=== PATIENT | female | born 1995 | race Caucasian/White ===

== ENCOUNTER 2021-10-25 11:52 | Inpatient (IN) ==
[2021-10-25] MEDS ORDERED: 0.9 % Sodium Chloride 1,000 ML IVC ONE (12:27)
[2021-10-25] MEDS ORDERED: Ondansetron 4 MG/2 ML VIAL IVP ONE ×2 (12:27→17:25)
[2021-10-25] MEDS ORDERED: *HR* HYDROmorphone (PF) 1 MG/ML SYRINGE IVP ONE (12:27)
[2021-10-25 14:28] LABS: Basophils % 0.1 %; Eosinophils % 0.6 %; Hematocrit 40.4 % (35.3-44.9); Hemoglobin 13.5 g/dL (11.5-15.4); Immature Granulocytes % 0.3 % (0-4); Lymphocytes # 1.6 K/mcL (0.6-4.6); Lymphocytes % 21.6 %; Mean Corpuscular HGB Conc 33.4 g/dL (31.6-35.5); Mean Corpuscular Hemoglobin 29.2 pg (28.0-33.3); Mean Corpuscular Volume 87.4 fL (83.0-100.0); Mean Platelet Volume 10.9 fL (9.4-12.4); Monocytes # 0.5 K/mcL (0.0-1.3); Monocytes % 6.9 %; Neutrophils # 5.1 K/mcL (1.6-8.9); Platelet Count 207 K/mcL (140-400); Red Blood Count 4.62 M/mcL (3.82-4.97); Red Cell Distribution Width 13.2 % (11.5-14.5); Segmented Neutrophils % 70.5 %; White Blood Count 7.2 K/mcL (4.3-11.1)
[2021-10-25 14:42] LABS: Alanine Aminotransferase 120 Units/L (7-52); Albumin 4.1 g/dL (3.5-5.7); Albumin/Globulin Ratio 1.3 (1.1-2.2); Alkaline Phosphatase 118 Units/L (34-104); Aspartate Amino Transferase 53 Units/L (13-39); BUN/Creatinine Ratio 13 (6-26); Bilirubin,Direct 3.1 mg/dL (0.0-0.2); Bilirubin,Indirect 2.1 mg/dL (0.0-1.0); Bilirubin,Total 5.2 mg/dL (0.3-1.0); Blood Urea Nitrogen 9 mg/dL (6-20); Calcium 8.7 mg/dL (8.6-10.3); Carbon Dioxide 17 mEq/L (23-29); Chloride 102 mEq/L (98-107); Globulin 3.1 g/dL (2.4-3.5); Glucose 65 mg/dL (70-105); Lipase 18 Units/L (11-82); Osmolality,Calculated 275 (280-300); Potassium 4.1 mEq/L (3.5-5.1); Sodium 134 mEq/L (136-145); Total Protein 7.2 g/dL (6.4-8.9); eGFR For African Americans > 60 (> 60); eGFR For Non-African Americans > 60 (> 60)
[2021-10-25] MEDS ORDERED: Isovue-370 500 ML BOTTLE IVP ONE (15:04)
[2021-10-25] MEDS ORDERED: *HR* Dextrose 50 % in Water (Syg) 50 ML SYRINGE IVP ONE (17:25)
[2021-10-25] MEDS ORDERED: Famotidine 20 MG/2 ML VIAL IVP ONE (17:25)
[2021-10-25] MEDS ORDERED: Naloxone 0.4 MG/ML INJ IVP PRN (19:52)
[2021-10-25] MEDS: 0.9 % Sodium Chloride 1,000 ML IVC SCH (20:55)
[2021-10-25] MEDS ORDERED: Dextrose Gel 15 GM/37.5 ML TUBE PO PRN ×2 (22:16)
[2021-10-25] MEDS ORDERED: D5% in Water 1,000 ML IVC PRN (22:16)
[2021-10-25] MEDS: *HR* Dextrose 50 % in Water (Syg) 50 ML SYRINGE IVP PRN (22:25)
[2021-10-25] MEDS ORDERED: Melatonin 3 MG TABLET PO ONE (22:37)
[2021-10-25 23:36] LABS: Bacteria,Urine Few per hpf (None-Few); Bilirubin,Urine Negative (Negative); Blood,Urine Trace (Negative); Calcium Oxalate Crystals,Urine Present per hpf; Clarity,Urine Clear (Clear); Color,Urine Yellow (Yellow); Glucose,Urine (UA) Normal (Normal); Ketones,Urine 150 mg/dL (Negative); Leukocyte Esterase,Urine Small (Negative); Mucus,Urine Few per lpf (None-Few); Nitrite,Urine Negative (Negative); PH,Urine 5.5 pH Units (5.0-8.0); Protein,Urine Trace mg/dL (Neg-Trace); Specific Gravity,Urine > 1.030 (1.010-1.025); Squamous Epithelial Cell,Urine Moderate per hpf (None-Few)
[2021-10-26] MEDS: *HR* Dextrose 50 % in Water (Syg) 50 ML SYRINGE IVP PRN (01:36)
[2021-10-26 05:15] LABS: Basophils % 0.3 %; Eosinophils # 0.1 K/mcL (0.0-0.6); Eosinophils % 1.2 %; Hematocrit 38.6 % (35.3-44.9); Hemoglobin 12.6 g/dL (11.5-15.4); Immature Granulocytes % 0.3 % (0-4); Lymphocytes # 2.1 K/mcL (0.6-4.6); Lymphocytes % 26.6 %; Mean Corpuscular HGB Conc 32.6 g/dL (31.6-35.5); Mean Corpuscular Hemoglobin 28.6 pg (28.0-33.3); Mean Corpuscular Volume 87.7 fL (83.0-100.0); Mean Platelet Volume 10.8 fL (9.4-12.4); Monocytes # 0.6 K/mcL (0.0-1.3); Monocytes % 8.1 %; Neutrophils # 4.9 K/mcL (1.6-8.9); Platelet Count 200 K/mcL (140-400); Red Cell Distribution Width 13.4 % (11.5-14.5); Segmented Neutrophils % 63.5 %; White Blood Count 7.8 K/mcL (4.3-11.1)
[2021-10-26 05:21] LABS: INR 1.2; Prothrombin Time 13.2 Seconds (9.4-12.1)
[2021-10-26] MEDS ORDERED: D5% in 0.9% NACL 1,000 ML IVC SCH (05:30)
[2021-10-26 05:36] LABS: Alanine Aminotransferase 113 Units/L (7-52); Albumin 3.9 g/dL (3.5-5.7); Albumin/Globulin Ratio 1.3 (1.1-2.2); Alkaline Phosphatase 110 Units/L (34-104); Aspartate Amino Transferase 61 Units/L (13-39); BUN/Creatinine Ratio 7 (6-26); Bilirubin,Direct 1.9 mg/dL (0.0-0.2); Bilirubin,Indirect 2.1 mg/dL (0.0-1.0); Blood Urea Nitrogen 5 mg/dL (6-20); Calcium 8.8 mg/dL (8.6-10.3); Carbon Dioxide 21 mEq/L (23-29); Chloride 104 mEq/L (98-107); Glucose 75 mg/dL (70-105); Magnesium 1.7 mg/dL (1.6-2.6); Osmolality,Calculated 276 (280-300); Sodium 135 mEq/L (136-145); Total Protein 6.9 g/dL (6.4-8.9); eGFR For African Americans > 60 (> 60); eGFR For Non-African Americans > 60 (> 60)
[2021-10-26 05:48] LABS: Thyroid Stimulating Hormone 0.988 mcIU/mL (0.340-5.600)
[2021-10-26 05:58] LABS: Hepatitis B Surface Antigen Nonreactive (Nonreactive)
[2021-10-26 06:28] LABS: Hepatitis A Antibody IgM Nonreactive (Nonreactive); Hepatitis B Core IgM Nonreactive (Nonreactive)
[2021-10-26 06:29] LABS: Hepatitis C Virus Antibody Nonreactive (Nonreactive)
[2021-10-26] MEDS ORDERED: *HR* Propofol 200 MG/20 ML VIAL IVP ONE (12:46)
[2021-10-26] MEDS ORDERED: *HR* FentaNYL (PF) 100 MCG/2 ML VIAL ONE ×2 (12:46→14:09)
[2021-10-26] MEDS ORDERED: Lidocaine -MPF 2% 5 ML VIAL ONE (12:46)
[2021-10-26] MEDS ORDERED: *HR* Midazolam HCl 2 MG/2 ML VIAL ONE (12:46)
[2021-10-26] MEDS ORDERED: *HR* Rocuronium Bromide 50 MG/5 ML VIAL ONE ×2 (12:46)
[2021-10-26] MEDS ORDERED: Indomethacin 50 MG SUPP.RECT RC ONE (13:56)
[2021-10-26] MEDS ORDERED: Promethazine 6.25 MG in Water for inj. (sterile) 20 ML IVPB PRN (15:23)
[2021-10-26] MEDS: 0.9 % Sodium Chloride 1,000 ML IVC SCH (16:49)
[2021-10-26] MEDS: Ketorolac 30 MG/ML VIAL IM PRN (21:54)
[2021-10-26] MEDS: Ondansetron 4 MG/2 ML VIAL IVP PRN (21:56)
[2021-10-27 02:00] LABS: Basophils % 0.1 %; Hematocrit 39.8 % (35.3-44.9); Hemoglobin 13.1 g/dL (11.5-15.4); Immature Granulocytes % 0.4 % (0-4); Lymphocytes # 0.9 K/mcL (0.6-4.6); Lymphocytes % 8.4 %; Mean Corpuscular HGB Conc 32.9 g/dL (31.6-35.5); Mean Corpuscular Hemoglobin 28.5 pg (28.0-33.3); Mean Corpuscular Volume 86.7 fL (83.0-100.0); Monocytes # 0.9 K/mcL (0.0-1.3); Monocytes % 7.9 %; Platelet Count 207 K/mcL (140-400); Red Blood Count 4.59 M/mcL (3.82-4.97); Red Cell Distribution Width 13.5 % (11.5-14.5); Segmented Neutrophils % 83.2 %; White Blood Count 10.8 K/mcL (4.3-11.1)
[2021-10-27 02:22] LABS: Alanine Aminotransferase 116 Units/L (7-52); Albumin/Globulin Ratio 1.4 (1.1-2.2); Alkaline Phosphatase 106 Units/L (34-104); Aspartate Amino Transferase 65 Units/L (13-39); BUN/Creatinine Ratio 9 (6-26); Blood Urea Nitrogen 6 mg/dL (6-20); Calcium 9.3 mg/dL (8.6-10.3); Carbon Dioxide 23 mEq/L (23-29); Chloride 103 mEq/L (98-107); Globulin 2.9 g/dL (2.4-3.5); Glucose 107 mg/dL (70-105); Osmolality,Calculated 282 (280-300); Potassium 4.9 mEq/L (3.5-5.1); Sodium 137 mEq/L (136-145); Total Protein 6.9 g/dL (6.4-8.9); eGFR For African Americans > 60 (> 60); eGFR For Non-African Americans > 60 (> 60)
[2021-10-27] MEDS ORDERED: *HR* HYDROmorphone 2 MG TABLET PO ONE (03:15)
[2021-10-27] MEDS ORDERED: Prochlorperazine 10 MG/2 ML VIAL IVP PRN ×2 (03:33→14:01)
[2021-10-27] MEDS ORDERED: Isovue-300 50ML VIAL ONE (07:35)
[2021-10-27] MEDS: Ondansetron 4 MG/2 ML VIAL IVP PRN (07:56)
[2021-10-27] MEDS: Ketorolac 30 MG/ML VIAL IM PRN ×3 (07:56→23:18)
[2021-10-27] MEDS ORDERED: Promethazine 6.25 MG in Water for inj. (sterile) 20 ML IVPB PRN ×2 (09:09→14:01)
[2021-10-27] MEDS ORDERED: Ondansetron 4 MG/2 ML VIAL IVP PRN ×3 (09:09→14:01)
[2021-10-27] MEDS ORDERED: *HR* OxyCODONE Immed Rel 5 MG TABLET PO PRN ×2 (09:09→14:01)
[2021-10-27] MEDS ORDERED: *HR* FentaNYL (PF) 100 MCG/2 ML VIAL IVP PRN ×3 (09:09→14:01)
[2021-10-27] MEDS ORDERED: *HR* FentaNYL (PF) 100 MCG/2 ML VIAL ONE ×2 (10:09→12:09)
[2021-10-27] MEDS ORDERED: *HR* Propofol 200 MG/20 ML VIAL IVP ONE (10:09)
[2021-10-27] MEDS ORDERED: *HR* Midazolam HCl 5 MG/5 ML VIAL IVP ONE (10:09)
[2021-10-27] MEDS ORDERED: *HR* Rocuronium Bromide 50 MG/5 ML VIAL ONE (10:10)
[2021-10-27] MEDS ORDERED: Sugammadex Sodium 200 MG/2 ML VIAL IV ONE (10:10)
[2021-10-27] MEDS ORDERED: Ondansetron 4 MG/2 ML VIAL ONE (10:10)
[2021-10-27] MEDS ORDERED: Lidocaine -MPF 2% 5 ML VIAL ONE (10:10)
[2021-10-27] MEDS ORDERED: *HR* Succinylcholine 200 MG/10 ML VIAL IVP ONE (10:10)
[2021-10-27] MEDS ORDERED: Lidocaine HCL 4 ML Topical Solution (Laryng-O-Jet Kit Sterile Pak) TP ONE (10:10)
[2021-10-27] MEDS ORDERED: CeFAZolin Syr 2,000MG/20 ML 2,000 MG/20 ML SYRINGE IVPB ONE (10:35)
[2021-10-27] MEDS ORDERED: Scopolamine Patch 1.5 MG PATCH.TD72 ONE (11:37)
[2021-10-27] MEDS ORDERED: Scopolamine Patch 1.5 MG PATCH.TD72 TD ONE (11:42)
[2021-10-27] MEDS ORDERED: *HR* Labetalol 20 MG/4 ML SYRINGE IVP ONE (12:39)
[2021-10-27] MEDS ORDERED: Ringers Solution, Lactated 1,000 ML ONE (13:29)
[2021-10-27] MEDS ORDERED: D5% in Water 1,000 ML IVC PRN (14:01)
[2021-10-27] MEDS ORDERED: Dextrose Gel 15 GM/37.5 ML TUBE PO PRN ×2 (14:01)
[2021-10-27] MEDS ORDERED: Naloxone 0.4 MG/ML INJ IVP PRN (14:01)
[2021-10-27] MEDS ORDERED: *HR* Dextrose 50 % in Water (Syg) 50 ML SYRINGE IVP PRN (14:01)
[2021-10-27] MEDS: *HR* FentaNYL (PF) 100 MCG/2 ML VIAL IVP PRN (16:25)
[2021-10-27] MEDS: Melatonin 3 MG TABLET PO PRN (20:22)
[2021-10-27] MEDS: Pantoprazole 40 MG VIAL IVP SCH (22:47)
[2021-10-28] MEDS: *HR* FentaNYL (PF) 100 MCG/2 ML VIAL IVP PRN (03:05)
[2021-10-28 05:40] LABS: Hematocrit 40.6 % (35.3-44.9); Hemoglobin 13.3 g/dL (11.5-15.4); Mean Corpuscular HGB Conc 32.8 g/dL (31.6-35.5); Mean Corpuscular Hemoglobin 28.9 pg (28.0-33.3); Mean Corpuscular Volume 88.3 fL (83.0-100.0); Mean Platelet Volume 11.1 fL (9.4-12.4); Platelet Count 218 K/mcL (140-400); Red Cell Distribution Width 14.4 % (11.5-14.5); White Blood Count 15.5 K/mcL (4.3-11.1)
[2021-10-28 06:48] LABS: Alanine Aminotransferase 84 Units/L (7-52); Albumin 3.7 g/dL (3.5-5.7); Albumin/Globulin Ratio 1.4 (1.1-2.2); Alkaline Phosphatase 92 Units/L (34-104); Aspartate Amino Transferase 54 Units/L (13-39); BUN/Creatinine Ratio 12 (6-26); Bilirubin,Total 1.5 mg/dL (0.3-1.0); Blood Urea Nitrogen 8 mg/dL (6-20); Calcium 8.5 mg/dL (8.6-10.3); Carbon Dioxide 25 mEq/L (23-29); Chloride 104 mEq/L (98-107); Globulin 2.7 g/dL (2.4-3.5); Glucose 114 mg/dL (70-105); Magnesium 1.7 mg/dL (1.6-2.6); Osmolality,Calculated 285 (280-300); Potassium 3.9 mEq/L (3.5-5.1); Sodium 138 mEq/L (136-145); Total Protein 6.4 g/dL (6.4-8.9); eGFR For African Americans > 60 (> 60); eGFR For Non-African Americans > 60 (> 60)
[2021-10-28] MEDS: Pantoprazole 40 MG VIAL IVP SCH (08:37)
[2021-10-28] MEDS ORDERED: 0.9 % Sodium Chloride 1,000 ML IVC ONE (10:50)
[2021-10-28] MEDS ORDERED: Ondansetron 4 MG/2 ML VIAL IVP PRN (10:55)
[2021-10-28] MEDS: Metoclopramide 10 MG/2 ML VIAL IVP SCH ×2 (11:25→17:11)
[2021-10-28] MEDS: Ketorolac 30 MG/ML VIAL IM PRN (17:10)
[2021-10-29 02:19] LABS: Hematocrit 38.3 % (35.3-44.9); Hemoglobin 12.7 g/dL (11.5-15.4); Mean Corpuscular HGB Conc 33.2 g/dL (31.6-35.5); Mean Corpuscular Hemoglobin 29.2 pg (28.0-33.3); Mean Platelet Volume 10.7 fL (9.4-12.4); Platelet Count 205 K/mcL (140-400); Red Blood Count 4.35 M/mcL (3.82-4.97); Red Cell Distribution Width 14.3 % (11.5-14.5); White Blood Count 16.4 K/mcL (4.3-11.1)
[2021-10-29] MEDS: *HR* FentaNYL (PF) 100 MCG/2 ML VIAL IVP PRN (03:17)
[2021-10-29] MEDS: Melatonin 3 MG TABLET PO PRN (03:18)
[2021-10-29] MEDS: Metoclopramide 10 MG/2 ML VIAL IVP SCH ×3 (03:18→12:08)
[2021-10-29] MEDS ORDERED: Piperacillin/Tazobactam 3.375 GM in 0.9 % Sodium Chloride Mini Bag 100 ML IVPB SCH (08:00)
[2021-10-29] MEDS: Pantoprazole 40 MG VIAL IVP SCH (08:00)
[2021-10-29 11:53] VITALS: BP 128/80; PULSE 107; TEMP 97.9; O2SAT 93
[2021-10-29 17:26] LABS: Bilirubin,Direct 0.7 mg/dL (0.0-0.2)
== END 2021-10-29 14:30 | disposition home or self-care (01) | DRG 263 ==
LOC: EMEROOARM 11:52 → 3ANU 11:52 → SUATTDRO 18:16 → 3ANU 19:34 → SUATTDRO 10-27 14:16
PROVIDERS: ADMIT Family Medicine; ATTEND Internal Medicine

== ENCOUNTER 2021-10-31 19:00 | Inpatient (IN) ==
[2021-10-31] MEDS ORDERED: 0.9 % Sodium Chloride 1,000 ML IVC ONE ×2 (20:01→21:00)
[2021-10-31 20:29] LABS: Basophils % 0.2 %; Eosinophils # 0.1 K/mcL (0.0-0.6); Eosinophils % 0.2 %; Hematocrit 37.7 % (35.3-44.9); Hemoglobin 12.5 g/dL (11.5-15.4); Lymphocytes # 1.6 K/mcL (0.6-4.6); Lymphocytes % 7.7 %; Mean Corpuscular HGB Conc 33.2 g/dL (31.6-35.5); Mean Corpuscular Hemoglobin 28.5 pg (28.0-33.3); Mean Corpuscular Volume 86.1 fL (83.0-100.0); Mean Platelet Volume 10.8 fL (9.4-12.4); Monocytes # 2.3 K/mcL (0.0-1.3); Monocytes % 11.2 %; Neutrophils # 16.5 K/mcL (1.6-8.9); Platelet Count 311 K/mcL (140-400); Red Blood Count 4.38 M/mcL (3.82-4.97); Segmented Neutrophils % 79.7 %; White Blood Count 20.7 K/mcL (4.3-11.1)
[2021-10-31 20:31] LABS: Bacteria,Urine Few per hpf (None-Few); Bilirubin,Urine Negative (Negative); Blood,Urine Large (Negative); Clarity,Urine Turbid (Clear); Color,Urine Yellow (Yellow); Glucose,Urine (UA) Normal (Normal); Ketones,Urine 150 mg/dL (Negative); Leukocyte Esterase,Urine Small (Negative); Mucus,Urine Few per lpf (None-Few); Nitrite,Urine Negative (Negative); Protein,Urine 100 mg/dL (Neg-Trace); RBC,Urine 0-3 per hpf (0-3); Specific Gravity,Urine 1.021 (1.010-1.025); Squamous Epithelial Cell,Urine Moderate per hpf (None-Few); WBC,Urine 15-30 per hpf (0-3)
[2021-10-31 20:37] LABS: Alanine Aminotransferase 24 Units/L (7-52); Albumin 3.1 g/dL (3.5-5.7); Alkaline Phosphatase 72 Units/L (34-104); Aspartate Amino Transferase 14 Units/L (13-39); BUN/Creatinine Ratio 12 (6-26); Bilirubin,Direct 0.2 mg/dL (0.0-0.2); Bilirubin,Indirect 0.7 mg/dL (0.0-1.0); Bilirubin,Total 0.9 mg/dL (0.3-1.0); Blood Urea Nitrogen 6 mg/dL (6-20); Calcium 8.2 mg/dL (8.6-10.3); Carbon Dioxide 29 mEq/L (23-29); Chloride 92 mEq/L (98-107); Globulin 3.1 g/dL (2.4-3.5); Glucose 101 mg/dL (70-105); Osmolality,Calculated 270 (280-300); Potassium 2.8 mEq/L (3.5-5.1); Sodium 131 mEq/L (136-145); Total Protein 6.2 g/dL (6.4-8.9); eGFR For African Americans > 60 (> 60); eGFR For Non-African Americans > 60 (> 60)
[2021-10-31] MEDS ORDERED: Potassium Chloride Elixir 20 MEQ/15 ML UDC PO ONE (21:22)
[2021-10-31] MEDS ORDERED: Isovue-370 500 ML BOTTLE IVP ONE (21:24)
[2021-10-31 21:44] LABS: Adenovirus Not Detected (Not Detect); Bordetella Pertussis Not Detected (Not Detect); Chlamydophila pneumoniae Not Detected (Not Detect); Coronavirus 229E Not Detected (Not Detect); Coronavirus HKU1 Not Detected (Not Detect); Coronavirus NL63 Not Detected (Not Detect); Coronavirus OC43 Not Detected (Not Detect); Human Metapneumovirus Not Detected (Not Detect); Human Rhinovirus/Enterovirus Not Detected (Not Detect); Influenza A Subtype 2009 H1 Not Detected (Not Detect); Influenza B Not Detected (Not Detect); Mycoplasma pneumoniae Not Detected (Not Detect); Parainfluenza Virus 1 Not Detected (Not Detect); Parainfluenza Virus 2 Not Detected (Not Detect); Parainfluenza Virus 3 Not Detected (Not Detect); Parainfluenza Virus 4 Not Detected (Not Detect); Respiratory Syncytial Virus Not Detected (Not Detect); SARS-CoV-2 Not Detected (Not Detect)
[2021-10-31] MEDS ORDERED: Piperacillin/Tazobactam 3.375 GM in 0.9 % Sodium Chloride Mini Bag 100 ML IVPB ONE (22:35)
[2021-10-31] MEDS ORDERED: *HR* FentaNYL (PF) 100 MCG/2 ML VIAL IVP ONE (23:33)
[2021-11-01 00:36] LABS: Lipase 49 Units/L (11-82)
[2021-11-01] MEDS ORDERED: Naloxone 0.4 MG/ML INJ IVP PRN (00:44)
[2021-11-01] MEDS ORDERED: *HR* Heparin 5,000 UNIT/ML VIAL IVP PRN ×2 (00:45)
[2021-11-01] MEDS ORDERED: *HR* Heparin 5,000 UNIT/ML VIAL IVP ONE (00:45)
[2021-11-01] MEDS ORDERED: 0.9 % Sodium Chloride 1,000 ML IVC SCH ×2 (00:45→01:47)
[2021-11-01] MEDS ORDERED: Heparin 25,000UNIT/250ML 1/2NS 25,000 UNIT/250 ML IV.SOLN IVC SCH (00:45)
[2021-11-01 01:23] LABS: Heparin anti-factor XA UFH < 0.04 IU/mL (0.30-0.70); INR 1.5; Prothrombin Time 16.9 Seconds (9.4-12.1)
[2021-11-01 06:53] LABS: Basophils % 0.2 %; Eosinophils # 0.1 K/mcL (0.0-0.6); Eosinophils % 0.4 %; Hematocrit 34.8 % (35.3-44.9); Hemoglobin 11.5 g/dL (11.5-15.4); Immature Granulocytes % 0.9 % (0-4); Lymphocytes # 1.5 K/mcL (0.6-4.6); Lymphocytes % 8.1 %; Mean Corpuscular Hemoglobin 28.9 pg (28.0-33.3); Mean Corpuscular Volume 87.4 fL (83.0-100.0); Mean Platelet Volume 10.3 fL (9.4-12.4); Monocytes # 2.2 K/mcL (0.0-1.3); Monocytes % 11.7 %; Neutrophils # 14.5 K/mcL (1.6-8.9); Platelet Count 265 K/mcL (140-400); Red Blood Count 3.98 M/mcL (3.82-4.97); Red Cell Distribution Width 14.2 % (11.5-14.5); Segmented Neutrophils % 78.7 %; White Blood Count 18.5 K/mcL (4.3-11.1)
[2021-11-01 07:23] LABS: Troponin I < 0.03 ng/mL (< 0.04)
[2021-11-01 07:49] LABS: Phosphorous 2.2 mg/dL (2.7-4.5)
[2021-11-01] MEDS ORDERED: Acetaminophen IV 1,000 MG/100 ML BAG IVPB ONE (07:54)
[2021-11-01] MEDS: Piperacillin/Tazobactam 3.375 GM in 0.9 % Sodium Chloride Mini Bag 100 ML IVPB SCH ×2 (08:00→17:55)
[2021-11-01] MEDS: 0.9 % Sodium Chloride 1,000 ML IVC SCH ×2 (08:18→14:59)
[2021-11-01 08:23] LABS: BUN/Creatinine Ratio 13 (6-26); Blood Urea Nitrogen 6 mg/dL (6-20); Calcium 7.5 mg/dL (8.6-10.3); Carbon Dioxide 25 mEq/L (23-29); Chloride 102 mEq/L (98-107); Glucose 93 mg/dL (70-105); Osmolality,Calculated 277 (280-300); Potassium 3.6 mEq/L (3.5-5.1); Sodium 135 mEq/L (136-145); eGFR For African Americans > 60 (> 60); eGFR For Non-African Americans > 60 (> 60)
[2021-11-01] MEDS: Ondansetron 4 MG/2 ML VIAL IVP PRN (18:03)
[2021-11-02] MEDS: 0.9 % Sodium Chloride 1,000 ML IVC SCH ×3 (00:11→22:26)
[2021-11-02] MEDS: Melatonin 3 MG TABLET PO PRN ×2 (00:11→22:28)
[2021-11-02] MEDS: Piperacillin/Tazobactam 3.375 GM in 0.9 % Sodium Chloride Mini Bag 100 ML IVPB SCH ×3 (00:11→22:27)
[2021-11-02] MEDS: Acetaminophen 325 MG TABLET PO PRN (00:11)
[2021-11-02 02:54] LABS: Basophils # 0.1 K/mcL (0.0-0.2); Basophils % 0.3 %; Eosinophils # 0.1 K/mcL (0.0-0.6); Eosinophils % 0.6 %; Hematocrit 33.7 % (35.3-44.9); Hemoglobin 10.9 g/dL (11.5-15.4); Immature Granulocytes % 2.1 % (0-4); Lymphocytes # 1.6 K/mcL (0.6-4.6); Mean Corpuscular HGB Conc 32.3 g/dL (31.6-35.5); Mean Corpuscular Volume 89.6 fL (83.0-100.0); Mean Platelet Volume 9.8 fL (9.4-12.4); Monocytes # 2.3 K/mcL (0.0-1.3); Monocytes % 13.1 %; Neutrophils # 13.1 K/mcL (1.6-8.9); Platelet Count 257 K/mcL (140-400); Red Blood Count 3.76 M/mcL (3.82-4.97); Red Cell Distribution Width 14.4 % (11.5-14.5); Segmented Neutrophils % 74.9 %; White Blood Count 17.5 K/mcL (4.3-11.1)
[2021-11-02 03:13] LABS: Alanine Aminotransferase 16 Units/L (7-52); Albumin 2.6 g/dL (3.5-5.7); Alkaline Phosphatase 60 Units/L (34-104); Aspartate Amino Transferase 14 Units/L (13-39); BUN/Creatinine Ratio 12 (6-26); Bilirubin,Total 0.6 mg/dL (0.3-1.0); Blood Urea Nitrogen 6 mg/dL (6-20); Calcium 7.5 mg/dL (8.6-10.3); Carbon Dioxide 24 mEq/L (23-29); Chloride 101 mEq/L (98-107); Globulin 2.6 g/dL (2.4-3.5); Glucose 86 mg/dL (70-105); Magnesium 1.8 mg/dL (1.6-2.6); Osmolality,Calculated 275 (280-300); Phosphorous 3.3 mg/dL (2.7-4.5); Sodium 134 mEq/L (136-145); Total Protein 5.2 g/dL (6.4-8.9); eGFR For African Americans > 60 (> 60); eGFR For Non-African Americans > 60 (> 60)
[2021-11-02] MEDS: Ondansetron 4 MG/2 ML VIAL IVP PRN (11:57)
[2021-11-02] MEDS ORDERED: Vancomycin 1,750 MG in 0.9 % Sodium Chloride 250 ML IVPB SCH (16:00)
[2021-11-02] MEDS: Vancomycin 1,750 MG/517.5 ML IV.SOLN IVPB SCH (18:50)
[2021-11-03] MEDS: 0.9 % Sodium Chloride 1,000 ML IVC SCH ×3 (00:18→14:09)
[2021-11-03] MEDS: Ketorolac 30 MG/ML VIAL IVP PRN ×3 (00:32→21:34)
[2021-11-03] MEDS: Piperacillin/Tazobactam 3.375 GM in 0.9 % Sodium Chloride Mini Bag 100 ML IVPB SCH ×3 (05:34→21:11)
[2021-11-03] MEDS: Vancomycin 1,750 MG/517.5 ML IV.SOLN IVPB SCH ×2 (05:35→21:53)
[2021-11-03 05:43] LABS: Basophils # 0.1 K/mcL (0.0-0.2); Basophils % 0.4 %; Eosinophils # 0.2 K/mcL (0.0-0.6); Hematocrit 34.7 % (35.3-44.9); Hemoglobin 11.4 g/dL (11.5-15.4); Immature Granulocytes % 3.3 % (0-4); Lymphocytes # 1.6 K/mcL (0.6-4.6); Lymphocytes % 9.6 %; Mean Corpuscular HGB Conc 32.9 g/dL (31.6-35.5); Mean Corpuscular Hemoglobin 28.9 pg (28.0-33.3); Mean Corpuscular Volume 87.8 fL (83.0-100.0); Mean Platelet Volume 9.8 fL (9.4-12.4); Monocytes # 1.8 K/mcL (0.0-1.3); Monocytes % 10.9 %; Neutrophils # 12.2 K/mcL (1.6-8.9); Platelet Count 275 K/mcL (140-400); Red Blood Count 3.95 M/mcL (3.82-4.97); Red Cell Distribution Width 14.4 % (11.5-14.5); Segmented Neutrophils % 74.8 %; White Blood Count 16.3 K/mcL (4.3-11.1)
[2021-11-03 05:59] LABS: Alanine Aminotransferase 14 Units/L (7-52); Albumin 2.6 g/dL (3.5-5.7); Alkaline Phosphatase 68 Units/L (34-104); Aspartate Amino Transferase 15 Units/L (13-39); BUN/Creatinine Ratio 8 (6-26); Bilirubin,Total 0.6 mg/dL (0.3-1.0); Blood Urea Nitrogen 4 mg/dL (6-20); Calcium 7.9 mg/dL (8.6-10.3); Carbon Dioxide 24 mEq/L (23-29); Chloride 101 mEq/L (98-107); Globulin 2.7 g/dL (2.4-3.5); Glucose 82 mg/dL (70-105); Magnesium 1.8 mg/dL (1.6-2.6); Osmolality,Calculated 276 (280-300); Phosphorous 3.8 mg/dL (2.7-4.5); Potassium 3.2 mEq/L (3.5-5.1); Sodium 135 mEq/L (136-145); Total Protein 5.3 g/dL (6.4-8.9); eGFR For African Americans > 60 (> 60); eGFR For Non-African Americans > 60 (> 60)
[2021-11-03 19:26] LABS: Adenovirus F 40/41 PCR Not detected (Not detect); Astrovirus PCR Not detected (Not detect); C.difficile Toxin A/B Gene PCR Not detected (Not detect); Campylobacter by PCR Not detected (Not detect); Cryptosporidium by PCR Not detected (Not detect); Cyclospora cayetanensis PCR Not detected (Not detect); E. coli O157 by PCR Not detected (Not detect); Entamoeba histolytica PCR Not detected (Not detect); Enteroaggregative E.coli(EAEC) Not detected (Not detect); Enteropathogenic E.coli(EPEC) Not detected (Not detect); Enterotoxigenic E.coli (ETEC) Not detected (Not detect); Giardia lamblia PCR Not detected (Not detect); Norovirus GI/GII PCR Not detected (Not detect); Plesiomonas shigelloides PCR Not detected (Not detect); Rotavirus A PCR Not detected (Not detect); Salmonella PCR Not detected (Not detect); Sapovirus PCR Not detected (Not detect); Shig/EnteroinvasiveE coli EIEC Not detected (Not detect); Shigalike tox-prod E coli STEC Not detected (Not detect); Vibrio PCR Not detected (Not detect); Vibrio cholerae PCR Not detected (Not detect); Yersinia enterocolitica PCR Not detected (Not detect)
[2021-11-03] MEDS: Lactobacillus 1 EACH CAP.SPRINK PO SCH (21:13)
[2021-11-04] MEDS: 0.9 % Sodium Chloride 1,000 ML IVC SCH ×3 (03:23→17:04)
[2021-11-04] MEDS: Piperacillin/Tazobactam 3.375 GM in 0.9 % Sodium Chloride Mini Bag 100 ML IVPB SCH ×3 (03:28→21:34)
[2021-11-04] MEDS: Acetaminophen 325 MG TABLET PO PRN ×2 (04:31→17:42)
[2021-11-04] MEDS: Ondansetron 4 MG/2 ML VIAL IVP PRN (04:33)
[2021-11-04] MEDS: Ketorolac 30 MG/ML VIAL IVP PRN ×2 (05:58→17:43)
[2021-11-04 07:02] LABS: Basophils % 0.1 %; Eosinophils # 0.2 K/mcL (0.0-0.6); Eosinophils % 1.2 %; Hematocrit 29.8 % (35.3-44.9); Immature Granulocytes % 3.6 % (0-4); Lymphocytes # 1.3 K/mcL (0.6-4.6); Lymphocytes % 8.6 %; Mean Corpuscular HGB Conc 32.9 g/dL (31.6-35.5); Mean Corpuscular Hemoglobin 28.6 pg (28.0-33.3); Mean Corpuscular Volume 86.9 fL (83.0-100.0); Mean Platelet Volume 9.7 fL (9.4-12.4); Monocytes # 1.5 K/mcL (0.0-1.3); Neutrophils # 11.2 K/mcL (1.6-8.9); Platelet Count 265 K/mcL (140-400); Red Blood Count 3.43 M/mcL (3.82-4.97); Red Cell Distribution Width 14.5 % (11.5-14.5); Segmented Neutrophils % 76.5 %; White Blood Count 14.6 K/mcL (4.3-11.1)
[2021-11-04 07:06] LABS: Hemoglobin 9.8 g/dL (11.5-15.4)
[2021-11-04 07:50] LABS: Alanine Aminotransferase 19 Units/L (7-52); Albumin 2.5 g/dL (3.5-5.7); Albumin/Globulin Ratio 0.9 (1.1-2.2); Alkaline Phosphatase 66 Units/L (34-104); Aspartate Amino Transferase 27 Units/L (13-39); BUN/Creatinine Ratio 7 (6-26); Bilirubin,Total 0.5 mg/dL (0.3-1.0); Blood Urea Nitrogen 3 mg/dL (6-20); Calcium 7.6 mg/dL (8.6-10.3); Carbon Dioxide 24 mEq/L (23-29); Chloride 103 mEq/L (98-107); Globulin 2.7 g/dL (2.4-3.5); Glucose 99 mg/dL (70-105); Osmolality,Calculated 281 (280-300); Potassium 3.1 mEq/L (3.5-5.1); Sodium 137 mEq/L (136-145); Total Protein 5.2 g/dL (6.4-8.9); eGFR For African Americans > 60 (> 60); eGFR For Non-African Americans > 60 (> 60)
[2021-11-04] MEDS: Lactobacillus 1 EACH CAP.SPRINK PO SCH ×2 (08:33→21:34)
[2021-11-04] MEDS ORDERED: Vancomycin 1,750 MG/517.5 ML IV.SOLN IVPB SCH (10:00)
[2021-11-04] MEDS: Melatonin 3 MG TABLET PO PRN (21:34)
[2021-11-05] MEDS: Ketorolac 30 MG/ML VIAL IVP PRN ×2 (00:08→06:21)
[2021-11-05] MEDS: 0.9 % Sodium Chloride 1,000 ML IVC SCH ×2 (03:30→14:29)
[2021-11-05 05:19] LABS: Basophils % 0.1 %; Eosinophils # 0.2 K/mcL (0.0-0.6); Eosinophils % 1.4 %; Hematocrit 29.4 % (35.3-44.9); Hemoglobin 9.8 g/dL (11.5-15.4); Immature Granulocytes % 2.6 % (0-4); Lymphocytes # 1.9 K/mcL (0.6-4.6); Lymphocytes % 12.1 %; Mean Corpuscular HGB Conc 33.3 g/dL (31.6-35.5); Mean Corpuscular Hemoglobin 29.3 pg (28.0-33.3); Mean Corpuscular Volume 87.8 fL (83.0-100.0); Mean Platelet Volume 9.7 fL (9.4-12.4); Monocytes # 1.3 K/mcL (0.0-1.3); Monocytes % 8.2 %; Neutrophils # 11.6 K/mcL (1.6-8.9); Platelet Count 285 K/mcL (140-400); Red Blood Count 3.35 M/mcL (3.82-4.97); Red Cell Distribution Width 14.4 % (11.5-14.5); Segmented Neutrophils % 75.6 %; White Blood Count 15.3 K/mcL (4.3-11.1)
[2021-11-05 05:30] LABS: Alanine Aminotransferase 20 Units/L (7-52); Albumin 2.5 g/dL (3.5-5.7); Albumin/Globulin Ratio 0.9 (1.1-2.2); Alkaline Phosphatase 60 Units/L (34-104); Aspartate Amino Transferase 22 Units/L (13-39); BUN/Creatinine Ratio 5 (6-26); Bilirubin,Total 0.6 mg/dL (0.3-1.0); Blood Urea Nitrogen 2 mg/dL (6-20); Carbon Dioxide 26 mEq/L (23-29); Chloride 102 mEq/L (98-107); Globulin 2.9 g/dL (2.4-3.5); Glucose 94 mg/dL (70-105); Lipase 61 Units/L (11-82); Osmolality,Calculated 282 (280-300); Potassium 3.3 mEq/L (3.5-5.1); Sodium 138 mEq/L (136-145); Total Protein 5.4 g/dL (6.4-8.9); eGFR For African Americans > 60 (> 60); eGFR For Non-African Americans > 60 (> 60)
[2021-11-05] MEDS: Piperacillin/Tazobactam 3.375 GM in 0.9 % Sodium Chloride Mini Bag 100 ML IVPB SCH ×3 (06:22→22:51)
[2021-11-05] MEDS: Lactobacillus 1 EACH CAP.SPRINK PO SCH ×2 (08:17→22:53)
[2021-11-05] MEDS ORDERED: Isovue-370 500 ML BOTTLE IVP ONE (09:32)
[2021-11-05] MEDS: Acetaminophen 325 MG TABLET PO PRN (22:50)
[2021-11-05] MEDS: Melatonin 3 MG TABLET PO PRN (22:51)
[2021-11-06] MEDS: 0.9 % Sodium Chloride 1,000 ML IVC SCH ×3 (00:48→22:41)
[2021-11-06] MEDS: Piperacillin/Tazobactam 3.375 GM in 0.9 % Sodium Chloride Mini Bag 100 ML IVPB SCH ×2 (05:49→14:08)
[2021-11-06] MEDS: Ondansetron 4 MG/2 ML VIAL IVP PRN (08:18)
[2021-11-06] MEDS: Lactobacillus 1 EACH CAP.SPRINK PO SCH ×2 (08:18→20:14)
[2021-11-06 10:19] LABS: Basophils % 0.3 %; Eosinophils # 0.2 K/mcL (0.0-0.6); Eosinophils % 1.4 %; Hematocrit 33.8 % (35.3-44.9); Hemoglobin 10.8 g/dL (11.5-15.4); Immature Granulocytes % 2.1 % (0-4); Lymphocytes # 1.3 K/mcL (0.6-4.6); Lymphocytes % 11.4 %; Mean Corpuscular Hemoglobin 27.8 pg (28.0-33.3); Mean Corpuscular Volume 86.9 fL (83.0-100.0); Mean Platelet Volume 9.7 fL (9.4-12.4); Monocytes # 1.1 K/mcL (0.0-1.3); Monocytes % 9.8 %; Neutrophils # 8.4 K/mcL (1.6-8.9); Nucleated Red Blood Cells 0.2 /100 WBC (0); Platelet Count 294 K/mcL (140-400); Red Blood Count 3.89 M/mcL (3.82-4.97); Red Cell Distribution Width 14.4 % (11.5-14.5); White Blood Count 11.2 K/mcL (4.3-11.1)
[2021-11-06 10:38] LABS: Alanine Aminotransferase 23 Units/L (7-52); Albumin 2.8 g/dL (3.5-5.7); Albumin/Globulin Ratio 0.9 (1.1-2.2); Alkaline Phosphatase 60 Units/L (34-104); Aspartate Amino Transferase 27 Units/L (13-39); BUN/Creatinine Ratio 5 (6-26); Bilirubin,Total 0.6 mg/dL (0.3-1.0); Blood Urea Nitrogen 2 mg/dL (6-20); Carbon Dioxide 25 mEq/L (23-29); Chloride 103 mEq/L (98-107); Glucose 98 mg/dL (70-105); Osmolality,Calculated 284 (280-300); Potassium 3.5 mEq/L (3.5-5.1); Sodium 139 mEq/L (136-145); Total Protein 5.8 g/dL (6.4-8.9); eGFR For African Americans > 60 (> 60); eGFR For Non-African Americans > 60 (> 60)
[2021-11-07 07:01] LABS: Basophils % 0.3 %; Eosinophils % 1.9 %; Mean Corpuscular Hemoglobin 28.2 pg (28.0-33.3); Red Cell Distribution Width 14.2 % (11.5-14.5)
[2021-11-07 07:03] LABS: Eosinophils # 0.2 K/mcL (0.0-0.6); Hematocrit 33.4 % (35.3-44.9); Hemoglobin 10.9 g/dL (11.5-15.4); Immature Granulocytes % 1.7 % (0-4); Immature Platelets 2.6 % (1.1-6.1); Lymphocytes # 1.9 K/mcL (0.6-4.6); Lymphocytes % 14.9 %; Mean Corpuscular HGB Conc 32.6 g/dL (31.6-35.5); Mean Corpuscular Volume 86.5 fL (83.0-100.0); Mean Platelet Volume 10.1 fL (9.4-12.4); Monocytes # 0.9 K/mcL (0.0-1.3); Monocytes % 7.4 %; Neutrophils # 9.2 K/mcL (1.6-8.9); Nucleated Red Blood Cells 0.2 /100 WBC (0); Platelet Count 290 K/mcL (140-400); Red Blood Count 3.86 M/mcL (3.82-4.97); Segmented Neutrophils % 73.8 %; White Blood Count 12.5 K/mcL (4.3-11.1)
[2021-11-07] MEDS: Ondansetron 4 MG/2 ML VIAL IVP PRN (07:39)
[2021-11-07] MEDS: Lactobacillus 1 EACH CAP.SPRINK PO SCH (07:39)
[2021-11-07] MEDS: 0.9 % Sodium Chloride 1,000 ML IVC SCH (07:41)
[2021-11-07 09:33] LABS: Alanine Aminotransferase 29 Units/L (7-52); Albumin 3.1 g/dL (3.5-5.7); Albumin/Globulin Ratio 0.9 (1.1-2.2); Alkaline Phosphatase 64 Units/L (34-104); Aspartate Amino Transferase 27 Units/L (13-39); BUN/Creatinine Ratio 6 (6-26); Bilirubin,Total 0.7 mg/dL (0.3-1.0); Blood Urea Nitrogen 3 mg/dL (6-20); Calcium 8.5 mg/dL (8.6-10.3); Carbon Dioxide 27 mEq/L (23-29); Chloride 101 mEq/L (98-107); Globulin 3.3 g/dL (2.4-3.5); Glucose 137 mg/dL (70-105); Osmolality,Calculated 283 (280-300); Potassium 3.7 mEq/L (3.5-5.1); Sodium 137 mEq/L (136-145); Total Protein 6.4 g/dL (6.4-8.9); eGFR For African Americans > 60 (> 60); eGFR For Non-African Americans > 60 (> 60)
[2021-11-07 11:32] VITALS: BP 135/98; PULSE 84; TEMP 97.9; O2SAT 91
== END 2021-11-07 16:30 | disposition home or self-care (01) | DRG 720 ==
LOC: EMEROOARM 19:00 → 3NENU 19:00 → SUATTDRO 23:42 → 3NENU 11-01 00:10 → SUATTDRO 11-02 15:44
PROVIDERS: ADMIT Internal Medicine; ATTEND General Practice